=== PATIENT | male | born 1995 | race African-American/Black ===

== ENCOUNTER 2017-11-26 19:57 | Emergency (ER) | payer OTHER ==
[~2017-11-26] VITALS: Ht 190.5 cm; Wt 115.7 kg
[~2017-11-26 19:57] MED LIST: AMOXIL500 MG PO; AUGMENTIN 875875 MG PO; BACTRIM DS 8001 TA1 PO; BENADRYL25 MG PO; CLARITIN10 MG PO; ELOCON 0.1% CRE15 GM PO; KEFLEX500 M1 PO; MEDROL DOSEPAK4 MG PO; MOTRIN600 MG PO; MOTRIN800 MG PO; NAPROSYN500 MG PO; NKHM; PROVENTIL0.09 MG/AC IH; ZITHROMAX Z PA250 MG PO
[2017-11-26 19:58] VITALS: BP 122/80
[2017-11-26 20:51] LABS: BASO % 0.1 % (0.0-1.0); EOS % 0.1 % (1.0-4.0); HEMATOCRIT 46.1 % (42.0-52.0); HEMOGLOBIN 15.5 g/dl (14.0-18.0); LYMPH % 7.7 % (27.0-41.0); MEAN CELL VOLUME 89.5 fl (80.0-94.0); MEAN CORPUSCULAR HGB 30.1 pg (27.0-31.0); MEAN CORPUSCULAR HGB CONC 33.6 g/dl (33.0-37.0); MONO # 0.6 10*3/uL (0.1-1.0); MONO % 4.4 % (3.0-9.0); NEUT # 11.7 10*3/uL (2.3-7.9); NEUT % 87.4 % (47.0-73.0); PLATELET COUNT AUTOMATED 274 10*3/uL (130-400); RED BLOOD COUNT 5.15 10*6/uL (4.50-5.90); RED CELL DISTRI WIDTH 12.5 % (0-14.5); WHITE BLOOD COUNT 13.4 10*3/uL (4.8-10.8)
[2017-11-26 21:08] LABS: ALKALINE PHOSPHATASE 89 U/L (45-117); BUN 20 mg/dl (7-24); CHLORIDE 98 mmol/L (98-107); CREATININE 0.98 mg/dL (0.70-1.30); LIPASE 149 U/L (73-393); POTASSIUM 3.9 mmol/L (3.5-5.1); SGOT/AST 25 IU/L (3-35); SGPT/ALT 32 U/L (12-78); SODIUM 137 mmol/L (136-145); TOTAL PROTEIN 8.9 gm/dL (6.4-8.2)
[2017-11-26] MEDS ORDERED: ZOFRAN ODT4 MG SL (21:33)
[2017-11-26] MEDS ORDERED: ZANTAC 150150 MG PO (21:33)
== END 2017-11-26 21:39 | disposition home or self-care (01) ==
LOC: ED 19:57
PROVIDERS: Physician Assistant
DX: K29.00 Acute gastritis without bleeding (principal); F17.200 Nicotine dependence, unspecified, uncomplicated

== ENCOUNTER 2018-05-23 03:45 | Emergency (ER) | payer OTHER ==
[~2018-05-23] VITALS: Ht 190.5 cm; Wt 110.2 kg
[~2018-05-23 03:45] MED LIST changes: +ZANTAC 150150 MG PO; +ZOFRAN ODT4 MG SL
[2018-05-23 04:49] VITALS: BP 147/83
[2018-05-26 15:06] LABS: GONOCOCCUS BY NAA Negative (Negative)
== END 2018-05-23 04:02 | disposition home or self-care (01) ==
LOC: ED 03:45
PROVIDERS: Student in an Organized Health Care Education/Training Program
DX: Z11.3 Encounter for screening for infections with a predominantly sexual mode of transmission (principal)

== ENCOUNTER 2019-06-07 01:14 | Emergency (ER) | payer SELFPAY ==
[~2019-06-07] VITALS: Ht 190.5 cm; Wt 108.9 kg
[2019-06-07 01:16] VITALS: BP 142/71
[2019-06-07 02:18] LABS: BASO % 0.1 % (0.0-1.0); EOS # 0.1 10*3/uL (0.0-0.4); EOS % 0.9 % (1.0-4.0); HEMATOCRIT 41.5 % (42.0-52.0); HEMOGLOBIN 13.7 g/dl (14.0-18.0); LYMPH % 25.3 % (27.0-41.0); MEAN CELL VOLUME 91.8 fl (80.0-94.0); MEAN CORPUSCULAR HGB 30.3 pg (27.0-31.0); MEAN PLATELET VOLUME 8.9 fl (9.6-12.3); MONO # 0.5 10*3/uL (0.1-1.0); MONO % 5.9 % (3.0-9.0); NEUT # 5.4 10*3/uL (2.3-7.9); NEUT % 67.7 % (47.0-73.0); PLATELET COUNT AUTOMATED 240 10*3/uL (130-400); RED BLOOD COUNT 4.52 10*6/uL (4.50-5.90); RED CELL DISTRI WIDTH 12.5 % (0-14.5)
[2019-06-07 02:33] LABS: ALBUMIN 4.4 gm/dl (3.1-4.5); ALKALINE PHOSPHATASE 62 U/L (45-117); BUN 12 mg/dl (7-24); CHLORIDE 104 mmol/L (98-107); CREATININE 0.97 mg/dL (0.70-1.30); LIPASE 60 U/L (73-393); SGOT/AST 14 IU/L (3-35); SGPT/ALT 22 U/L (12-78); SODIUM 140 mmol/L (136-145)
[2019-06-07] MEDS ORDERED: PROTONIX40 MG PO (03:50)
== END 2019-06-07 04:20 | disposition home or self-care (01) ==
LOC: ED 01:14
PROVIDERS: Emergency Medicine
DX: K29.70 Gastritis, unspecified, without bleeding (principal); N39.0 Urinary tract infection, site not specified; F17.200 Nicotine dependence, unspecified, uncomplicated

== ENCOUNTER 2019-07-13 00:06 | Emergency (ER) | payer SELFPAY ==
[~2019-07-13] VITALS: Ht 190.5 cm; Wt 98.9 kg
[~2019-07-13 00:06] MED LIST changes: +PROTONIX40 MG PO
[2019-07-13 00:25] VITALS: BP 138/66
== END 2019-07-13 01:23 | disposition left against medical advice (07) ==
LOC: ED 00:06
DX: R11.10 Vomiting, unspecified (principal); R53.1 Weakness; Z53.21 Procedure and treatment not carried out due to patient leaving prior to being seen by health care provider

== ENCOUNTER 2019-07-18 13:07 | Emergency (ER) | payer SELFPAY ==
[~2019-07-18] VITALS: Ht 190.5 cm; Wt 99.8 kg
[2019-07-18 13:08] VITALS: BP 142/72
[2019-07-18] MEDS ORDERED: VISTARIL25 MG PO (14:13)
[2019-07-18] MEDS ORDERED: 'CLONIDINE0.1 MG PO (14:13)
== END 2019-07-18 14:19 | disposition home or self-care (01) ==
LOC: ED 13:07
DX: F11.10 Opioid abuse, uncomplicated (principal); F41.9 Anxiety disorder, unspecified; R68.83 Chills (without fever); R25.2 Cramp and spasm; J45.909 Unspecified asthma, uncomplicated; Z79.899 Other long term (current) drug therapy

== ENCOUNTER 2019-07-18 21:56 | Emergency (ER) | payer SELFPAY ==
[~2019-07-18] VITALS: Ht 190.5 cm; Wt 99.8 kg
[~2019-07-18 21:56] MED LIST changes: +'CLONIDINE0.1 MG PO; +VISTARIL25 MG PO
[2019-07-18 21:57] VITALS: BP 132/74
== END 2019-07-19 00:44 | disposition home or self-care (01) ==
LOC: ED 21:56
DX: F11.20 Opioid dependence, uncomplicated (principal); J45.909 Unspecified asthma, uncomplicated; F17.200 Nicotine dependence, unspecified, uncomplicated; Z79.899 Other long term (current) drug therapy

== ENCOUNTER 2020-03-06 04:08 | Emergency (ER) | payer OTHER ==
[2020-03-06 04:34] LABS: BASO % 0.2 % (0.0-1.0); EOS # 0.2 10*3/uL (0.0-0.4); EOS % 2.5 % (1.0-4.0); LYMPH # 2.9 10*3/uL (1.3-4.4); LYMPH % 34.9 % (27.0-41.0); MEAN CELL VOLUME 89.5 fl (80.0-94.0); MEAN CORPUSCULAR HGB 29.8 pg (27.0-31.0); MEAN CORPUSCULAR HGB CONC 33.3 g/dl (33.0-37.0); MEAN PLATELET VOLUME 8.3 fl (9.6-12.3); MONO # 0.5 10*3/uL (0.1-1.0); MONO % 6.1 % (3.0-9.0); NEUT # 4.7 10*3/uL (2.3-7.9); NEUT % 56.2 % (47.0-73.0); PLATELET COUNT AUTOMATED 270 10*3/uL (130-400); RED BLOOD COUNT 4.47 10*6/uL (4.50-5.90); RED CELL DISTRI WIDTH 12.1 % (0-14.5); WHITE BLOOD COUNT 8.4 10*3/uL (4.8-10.8)
[2020-03-06 04:50] LABS: ALBUMIN 4.3 gm/dl (3.1-4.5); ALKALINE PHOSPHATASE 55 U/L (45-117); BUN 15 mg/dl (7-24); CHLORIDE 106 mmol/L (98-107); CREATININE 0.96 mg/dL (0.70-1.30); LIPASE 41 U/L (73-393); POTASSIUM 3.4 mmol/L (3.5-5.1); SGOT/AST 17 IU/L (3-35); SGPT/ALT 18 U/L (12-78); SODIUM 140 mmol/L (136-145); TOTAL PROTEIN 7.9 gm/dL (6.4-8.2)
[2020-03-06 05:10] VITALS: BP 155/85
== END 2020-03-06 05:23 | disposition left against medical advice (07) ==
LOC: ED 04:08
PROVIDERS: Emergency Medicine
DX: S31.109A Unspecified open wound of abdominal wall, unspecified quadrant without penetration into peritoneal cavity, initial encounter (principal); J45.909 Unspecified asthma, uncomplicated; F17.200 Nicotine dependence, unspecified, uncomplicated; Z79.899 Other long term (current) drug therapy; W34.00XA Accidental discharge from unspecified firearms or gun, initial encounter; Y93.89 Activity, other specified; Y92.89 Other specified places as the place of occurrence of the external cause; Y99.8 Other external cause status

== ENCOUNTER 2020-12-19 16:31 | Inpatient (IN) | payer OTHER ==
[~2020-12-19] VITALS: Ht 190.5 cm; Wt 93.1 kg
[2020-12-19 16:39] VITALS: BP 139/76
[2020-12-19 17:25] LABS: BILIRUBIN Negative (Negative); BLOOD Negative (Negative); CLARITY Clear (Clear); COLOR Yellow (Yellow); GLUCOSE Negative (Negative); KETONE 2+ (Negative); LEUKO ESTERASE Negative (Negative); NITRITE Negative (Negative); PH 7.5 (4.5-8.0)
[2020-12-19 17:32] LABS: URINE AMPHETAMINES < 1000 (1000ng/ml); URINE BARBITURATES < 200 (200ng/ml); URINE BENZODIAZEPINES < 200 (200ng/ml); URINE CANNABINOIDS (THC) < 50 (50ng/ml); URINE COCAINE > 300 (300ng/ml); URINE METHADONE < 300 (300ng/ml); URINE OPIATES < 300 (300ng/ml)
[2020-12-19 17:33] LABS: URINE PHENCYCLIDINE < 25 (25ng/ml)
[2020-12-19 17:36] LABS: RBC 0-2 rbc/hpf (0-2)
[2020-12-19 17:37] LABS: BACTERIA TRACE; MUCOUS TRACE
[2020-12-19 18:24] LABS: HEMATOCRIT 40.1 % (42.0-52.0); LYMPH # 1.1 10*3/uL (1.3-4.4); LYMPH % 12.8 % (27.0-41.0); MEAN CELL VOLUME 87.9 fl (80.0-94.0); MEAN CORPUSCULAR HGB 28.5 pg (27.0-31.0); MEAN CORPUSCULAR HGB CONC 32.4 g/dl (33.0-37.0); MONO # 0.2 10*3/uL (0.1-1.0); MONO % 2.6 % (3.0-9.0); NEUT # 7.2 10*3/uL (2.3-7.9); NEUT % 84.4 % (47.0-73.0); PLATELET COUNT AUTOMATED 313 10*3/uL (130-400); RED BLOOD COUNT 4.56 10*6/uL (4.50-5.90); RED CELL DISTRI WIDTH 13.2 % (0-14.5); WHITE BLOOD COUNT 8.5 10*3/uL (4.8-10.8)
[2020-12-19 18:35] LABS: INTERNATIONAL NORM RATIO 1.1 (2.0-3.5)
[2020-12-19 18:40] LABS: ALBUMIN 4.5 gm/dl (3.1-4.5); ALKALINE PHOSPHATASE 106 U/L (45-117); BUN 12 mg/dl (7-24); CHLORIDE 104 mmol/L (98-107); CREATININE 0.89 mg/dL (0.70-1.30); POTASSIUM 4.1 mmol/L (3.5-5.1); SGOT/AST 12 IU/L (3-35); SGPT/ALT 18 U/L (12-78); SODIUM 136 mmol/L (136-145); TOTAL PROTEIN 8.9 gm/dL (6.4-8.2)
[2020-12-19 18:45] LABS: ETHYL ALCOHOL < 3.0 mg/dl (<3)
[2020-12-19 19:48] VITALS: BP 122/70
[2020-12-19 20:17] VITALS: BP 145/73
[2020-12-20] VITALS: BP 122/58
[2020-12-20 08:00] VITALS: BP 134/78
[2020-12-20 12:00] VITALS: BP 130/86
== END 2020-12-20 14:56 | disposition left against medical advice (07) | DRG 770 ==
LOC: ED 16:31 → EDHOLD 17:20 → 4E 17:20
PROVIDERS: Internal Medicine; Physician Assistant; ADMIT Family Medicine; ATTEND Family Medicine
DX: F11.23 Opioid dependence with withdrawal (principal); F14.23 Cocaine dependence with withdrawal; F17.210 Nicotine dependence, cigarettes, uncomplicated; G25.81 Restless legs syndrome; F32.9 Major depressive disorder, single episode, unspecified; D64.9 Anemia, unspecified; F41.9 Anxiety disorder, unspecified; Z91.030 Bee allergy status; Z53.29 Procedure and treatment not carried out because of patient's decision for other reasons

== ENCOUNTER 2022-01-31 15:22 | Emergency (ER) | payer MEDICAID ==
[~2022-01-31] VITALS: Ht 190.5 cm; Wt 113.4 kg
[2022-01-31 15:29] VITALS: BP 130/88
== END 2022-01-31 16:30 | disposition left against medical advice (07) ==
LOC: ED 15:22
DX: R11.10 Vomiting, unspecified (principal); Z53.21 Procedure and treatment not carried out due to patient leaving prior to being seen by health care provider

== ENCOUNTER 2022-11-10 14:46 | Emergency (ER) | payer MEDICAID ==
[~2022-11-10] VITALS: Ht 190.5 cm; Wt 95.2 kg
[2022-11-10 14:54] VITALS: BP 121/47
== END 2022-11-10 16:17 ==
LOC: ED 14:46
DX: S80.01XA Contusion of right knee, initial encounter (principal); J45.909 Unspecified asthma, uncomplicated; Z90.89 Acquired absence of other organs; F17.200 Nicotine dependence, unspecified, uncomplicated; F19.10 Other psychoactive substance abuse, uncomplicated; W18.30XA Fall on same level, unspecified, initial encounter; Y93.02 Activity, running; Y92.89 Other specified places as the place of occurrence of the external cause; Y99.8 Other external cause status

== ENCOUNTER 2023-06-22 20:20 | Emergency (ER) | payer MEDICAID ==
[~2023-06-22] VITALS: Ht 190.5 cm; Wt 86.2 kg
[2023-06-22 20:45] VITALS: BP 136/86
[2023-06-22 22:07] LABS: BASO % 0.1 % (0.0-1.0); EOS # 0.1 10*3/uL (0.0-0.4); EOS % 0.6 % (1.0-4.0); HEMATOCRIT 37.7 % (42.0-52.0); LYMPH # 2.7 10*3/uL (1.3-4.4); LYMPH % 19.8 % (27.0-41.0); MEAN CELL VOLUME 88.1 fl (80.0-94.0); MEAN CORPUSCULAR HGB 29.4 pg (27.0-31.0); MEAN CORPUSCULAR HGB CONC 33.4 g/dl (33.0-37.0); MEAN PLATELET VOLUME 8.7 fl (9.6-12.3); MONO # 0.8 10*3/uL (0.1-1.0); MONO % 6.1 % (3.0-9.0); NEUT # 9.7 10*3/uL (2.3-7.9); NEUT % 72.4 % (47.0-73.0); PLATELET COUNT AUTOMATED 307 10*3/uL (130-400); RED BLOOD COUNT 4.28 10*6/uL (4.50-5.90); RED CELL DISTRI WIDTH 12.8 % (0-14.5); WHITE BLOOD COUNT 13.5 10*3/uL (4.8-10.8)
[2023-06-22 22:30] LABS: ALKALINE PHOSPHATASE 55 U/L (46-116); BUN 11 mg/dl (9-23); CHLORIDE 105 mmol/L (98-107); POTASSIUM 4.1 mmol/L (3.4-5.1); SGPT/ALT 28 U/L (10-49); TOTAL PROTEIN 7.2 gm/dL (6.0-8.0)
[2023-06-23] MEDS ORDERED: VIBRAMYCIN100 MG PO (00:13)
== END 2023-06-23 00:33 | disposition home or self-care (01) ==
LOC: ED 20:20
PROVIDERS: Nurse Practitioner Family
DX: L08.9 Local infection of the skin and subcutaneous tissue, unspecified (principal); J45.909 Unspecified asthma, uncomplicated; Z90.89 Acquired absence of other organs; F19.10 Other psychoactive substance abuse, uncomplicated; F17.290 Nicotine dependence, other tobacco product, uncomplicated